=== PATIENT | female | born 1950 | race Caucasian/White ===

== ENCOUNTER → 2016-11-14 14:11 | Emergency (ER) | payer SELFPAY ==
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
[2016-11-14 16:35] VITALS: BP 165/62
== END | disposition home or self-care (01) ==
LOC: ED 14:11
DX: R51 Headache (principal); V89.2XXA Person injured in unspecified motor-vehicle accident, traffic, initial encounter; Y92.9 Unspecified place or not applicable; I25.10 Atherosclerotic heart disease of native coronary artery without angina pectoris; I10 Essential (primary) hypertension; K21.9 Gastro-esophageal reflux disease without esophagitis; Z87.891 Personal history of nicotine dependence; E11.9 Type 2 diabetes mellitus without complications; Z79.4 Long term (current) use of insulin; Z79.84 Long term (current) use of oral hypoglycemic drugs
CPT/HCPCS: 70450; 99282

== ENCOUNTER 2016-12-23 14:00 | Emergency (ER) | payer BC, MEDICARE ==
[2016-12-23 14:09] VITALS: BP 166/82
--- NOTE | 2016-12-23 14:22 | UC ---
Lower Extremity/Ankle HPI - HPI Summary HPI Summary: 66 YEAR OLD FEMALE WITH INSECT BITE BEHIND LEFT KNEE. - History of Current Complaint Chief Complaint: UCSkin Stated Complaint: RT LEG COMPLAINT-RED/SWOLLEN Time Seen by Provider: 12/23/16 14:15 - Allergies/Home Medications Allergies/Adverse Reactions: Allergies Allergy/AdvReac Type Severity Reaction Status Date / Time Morphine Allergy Nausea And Verified 12/23/16 14:10 Vomiting PMH/Surg Hx/FS Hx/Imm Hx Other History Of: Negative For: Anticoagulant Therapy - Surgical History Surgical History: Yes Surgery Procedure, Year, and Place: hysterectomy. . gallbladder. bunionectomy. Right Ankle Surgery - Family History Known Family History: Positive: Diabetes - mom - Social History Alcohol Use: None Alcohol Amount: ONCE A MONTH Substance Use Type: None Smoking Status (MU): Former Smoker Amount Used/How Often: 1 PPD X 30 YRS. Have You Smoked in the Last Year: No When Did the Patient Quit Smoking/Using Tobacco: 2000 Household Exposure Type: Cigarettes Review of Systems Constitutional: Negative Skin: Rash, Other - POSTERIOR LEFT KNEE INSECT BITE Eyes: Negative ENT: Negative Respiratory: Negative Cardiovascular: Negative Gastrointestinal: Negative Genitourinary: Negative Motor: Negative Neurovascular: Negative Musculoskeletal: Negative Neurological: Negative Psychological: Negative All Other Systems Reviewed And Are Negative: Yes Physical Exam Triage Information Reviewed: Yes Vital Signs: Initial Vital Signs Temp 37.4 C 12/23/16 14:02 Pulse 99 12/23/16 14:02 Resp 16 12/23/16 14:02 BP 166/82 12/23/16 14:02 Pulse Ox 97 12/23/16 14:02 Eye Exam: Normal ENT Exam: Normal Dental Exam: Normal Neck exam: Normal Neck: Positive: 1 Respiratory Exam: Normal Cardiovascular Exam: Normal Abdominal Exam: Normal Musculoskeletal Exam: Normal Neurological Exam: Normal Psychological Exam: Normal Skin Exam: Normal Skin: Positive: Other - LEFT POSTERIOR KNEE INSECT BITE Lower Extremity Course/Dx - Differential Dx/Diagnosis Provider Diagnoses: LEFT POSTERIOR KNEE INSECT BITE Discharge - Discharge Plan Condition: Stable Disposition: HOME Prescriptions: Methylprednisolone [Medrol Dosepak 4 MG*] 4 mg PO .SEE DOLLY INSTRUCTION #21 tab Mupirocin 2% OINT* [Bactroban 2 % Oint*] 1 applic TOPICAL BID #1 tube Sulfamethox/Trimethoprim DS* [Bactrim DS 800/160 TAB*] 1 tab PO BID #30 tab Patient Education Materials: Insect Bite or Sting (ED) Referrals: Ambrosio Hill MD [Primary Care Provider] - If Needed
== END 2016-12-23 14:30 | disposition home or self-care (01) ==
LOC: UCEAST 14:00
DX: S80.262A Insect bite (nonvenomous), left knee, initial encounter (principal); W57.XXXA Bitten or stung by nonvenomous insect and other nonvenomous arthropods, initial encounter; Y93.9 Activity, unspecified; Y92.9 Unspecified place or not applicable; Y99.9 Unspecified external cause status; Z87.891 Personal history of nicotine dependence
CPT/HCPCS: 99212; G0463

== ENCOUNTER 2017-06-30 14:21 | Emergency (ER) | payer MEDICARE, OTHER ==
[2017-06-30 14:35] VITALS: BP 154/56
[2017-06-30] MEDS ORDERED: HYDROcodone/ACETAMIN 5-325 MG* 1 TAB PO ONE (15:06)
--- NOTE | 2017-06-30 15:32 | RAD ---
INDICATION: Right shoulder pain. TECHNIQUE: 2 views of the right shoulder were obtained. FINDINGS: The bones are in normal alignment. No fracture is seen. There is calcification adjacent to the superior lateral aspect of the humeral head. IMPRESSION: FINDINGS SUGGESTIVE OF CALCIFIC TENDINITIS OR BURSITIS.
--- NOTE | 2017-06-30 15:50 | UC ---
Shoulder Pain HPI - HPI Summary HPI Summary: Sudden onset of right shoulder pain (pain near humeral head) last night limited ROM due to pain--no new injury is currently retired from [employer] work - History of Current Complaint Chief Complaint: UCUpperExtremity Stated Complaint: SHOULDER PAIN Time Seen by Provider: 06/30/17 15:02 Hx Obtained From: Patient ?: No Onset/Duration: Sudden Onset, Lasting Days - 1, Still Present Timing: Constant Severity Initially: Moderate Severity Currently: Moderate Location Of Pain: Is Discrete @ Character: Aching, Throbbing, Stiffness Aggravating Factor(s): Movement Alleviating Factor(s): Rest Associated Signs And Symptoms: Positive: Negative Related History: Dominant Hand Right - Allergies/Home Medications Allergies/Adverse Reactions: Allergies Allergy/AdvReac Type Severity Reaction Status Date / Time Morphine Allergy Nausea And Verified 12/23/16 14:10 Vomiting Home Medications: Home Medications Hydrocodone-Acetaminophen [Hydrocodone Bitartrate/AC 10-325 mg] 1 tab PO Q6HR PRN 06/30/17 [History Confirmed 06/30/17] PMH/Surg Hx/FS Hx/Imm Hx Previously Healthy: No Endocrine History: Diabetes, Dyslipidemia Cardiovascular History: Hypertension GI/ History: Gastroesophageal Reflux Other History Of: Negative For: Anticoagulant Therapy - Surgical History Surgical History: Yes Surgery Procedure, Year, and Place: hysterectomy. . gallbladder. bunionectomy. Right Ankle Surgery - Family History Known Family History: Positive: Diabetes - mom - Social History Occupation: Retired Lives: With Family Alcohol Use: None Alcohol Amount: ONCE A MONTH Substance Use Type: None Smoking Status (MU): Former Smoker Amount Used/How Often: 1 PPD X 30 YRS. Have You Smoked in the Last Year: No When Did the Patient Quit Smoking/Using Tobacco: 2000 Household Exposure Type: Cigarettes - Immunization History Most Recent Influenza Vaccination: fall 2016 Review of Systems Constitutional: Negative Skin: Negative Eyes: Negative ENT: Negative Respiratory: Negative Cardiovascular: Negative Gastrointestinal: Negative Genitourinary: Negative Motor: Negative Neurovascular: Negative Musculoskeletal: Arthralgia - right shoulder Neurological: Negative Psychological: Negative Is Patient Immunocompromised?: No All Other Systems Reviewed And Are Negative: Yes Physical Exam Triage Information Reviewed: Yes Appearance: Well-Appearing, Pain Distress, Thin Vital Signs: Initial Vital Signs Temp 97.5 F 06/30/17 14:30 Pulse 82 06/30/17 14:30 Resp 16 06/30/17 14:30 BP 154/56 06/30/17 14:30 Pulse Ox 99 06/30/17 14:30 Vital Signs Reviewed: Yes Eye Exam: Normal Eyes: Positive: Conjunctiva Clear ENT Exam: Normal ENT: Positive: Normal ENT inspection, Hearing grossly normal, Pharynx normal. Negative: Nasal congestion, Trismus, Muffled voice, Hoarse voice, Dental tenderness, Sinus tenderness Dental Exam: Normal Neck exam: Normal Neck: Positive: Supple, Nontender, No Lymphadenopathy Respiratory Exam: Normal Respiratory: Positive: Chest non-tender, No respiratory distress, No accessory muscle use Cardiovascular Exam: Normal Cardiovascular: Positive: RRR, Pulses Normal, Brisk Capillary Refill Musculoskeletal Exam: Normal Musculoskeletal: Positive: No Edema, Strength Limited @ - right shoulder, ROM Limited @ - right shoulder Neurological Exam: Normal Neurological: Positive: Alert, Muscle Tone Normal Psychological Exam: Normal Skin Exam: Normal Diagnostics - Radiology No standard instances Xray Interpretation: Positive (See Comments) - Calcific tendonitis Radiology Interpretation Completed By: ED Physician, Radiologist Shoulder Course/Dx - Course Assessment/Plan: Mobic, Hydrocodone, sling for comfort, follow with ortho for definative care - Differential Dx/Diagnosis Provider Diagnoses: right calcific tendonitis Discharge - Discharge Plan Condition: Stable Disposition: HOME Prescriptions: Hydrocodone-Acetaminophen [Hydrocodone/Acetaminophen 5-325 mg] 1 - 2 tab PO QID PRN #20 tab MDD 6 PRN Reason: pain Meloxicam(NF) [Mobic(NF)] 7.5 mg PO DAILY PRN #30 tab PRN Reason: Pain Patient Education Materials: Meloxicam (By mouth), Calcific Tendinitis (ED), Hypertension (ED) Referrals: Ambrosio Hill MD [Primary Care Provider] - 2 Weeks David Mccartney MD [Medical Doctor] - 1 Week
== END 2017-06-30 16:00 | disposition home or self-care (01) ==
LOC: UCEAST 14:21
DX: M75.31 Calcific tendinitis of right shoulder (principal); E11.9 Type 2 diabetes mellitus without complications; E78.5 Hyperlipidemia, unspecified; I10 Essential (primary) hypertension; K21.9 Gastro-esophageal reflux disease without esophagitis; Z90.710 Acquired absence of both cervix and uterus; Z90.49 Acquired absence of other specified parts of digestive tract; Z88.5 Allergy status to narcotic agent; Z87.891 Personal history of nicotine dependence
CPT/HCPCS: 99213; G0463

== ENCOUNTER 2017-11-13 09:13 | Day surgery (SDC) | payer MEDICARE ==
--- NOTE | 2017-10-25 21:16 | HP ---
PREOPERATIVE HISTORY AND PHYSICAL: DATE OF ADMISSION/SURGERY: 11/13/17 DATE OF OFFICE VISIT: 10/25/17 ATTENDING PHYSICIAN: Dr. David Mccartney.* (DICTATED BY BAILEY YUSUF) PROCEDURE: Right fibula tibia removal of hardware and left knee injection. CHIEF COMPLAINT: Right ankle pain. HISTORY OF PRESENT ILLNESS: Jolie is a 67-year-old female, who presents to the clinic status post ORIF of the right ankle performed on 05/21/16. She has pain due to the hardware in her ankle. She has failed conservative measures and therefore agreed to undergo a right fibula tibia removal of hardware and the left knee injection with Dr. Mccartney on 11/13/17. She has left knee osteoarthritis and requires a steroid injection for pain control. PAST MEDICAL HISTORY: Diabetes, high cholesterol, hypertension, GERD, arthritis. PAST SURGICAL HISTORY: Cholecystectomy, hysterectomy, , right bunion surgery, and right ankle ORIF. The patient denies prior complications with anesthesia. MEDICATIONS: 1. Hydrochlorothiazide 25 mg 1 by mouth daily. 2. Simvastatin 40 mg 1 by mouth daily. 3. Rabeprazole sodium 20 mg 1 by mouth daily. 4. Metformin 1000 mg 1 by mouth daily. 5. Glipizide 5 mg 1 by mouth daily. 6. Ondansetron 4 mg 1 by mouth daily. 7. Trazodone 50 mg 1 by mouth daily as needed. 8. Tizanidine 4 mg 1 by mouth daily. 9. Lisinopril 20 mg daily. 10. Fish oil daily. 11. Calcium daily. ALLERGIES: No known drug allergies. FAMILY HISTORY: Positive for diabetes in her sister and her mother. Hypertension in her mother. SOCIAL HISTORY: She lives with her roommate. She works in cleaning. She is a former smoker, quit in 1999. She denies alcohol use. She is right hand dominant. She denies illegal drug use. REVIEW OF SYSTEMS: A 14-point review of systems was reviewed with the patient. Positive for current complaint, otherwise negative. Denies fever, chills, chest pain, shortness of breath, history of bleeding disorder, history of DVT or PE, history of hep C or HIV. PHYSICAL EXAMINATION GENERAL: A 67-year-old well-developed, well-nourished female in no acute distress. Alert and oriented x3. Appropriate mood and affect. Appropriate balance and coordination of the lower extremities VITAL SIGNS: Height 59, weight 127 pounds, blood pressure 114/60, respiratory rate 20, temperature 98.3, BMI 25.6. HEENT: Normocephalic, atraumatic. PERRLA. Throat clear. NECK: Supple. PULMONARY: Lungs clear to auscultation bilaterally. No wheezing, rhonchi, or rales. CARDIO: Regular rate and rhythm. S1 and S2. No murmurs, gallops, or rubs. No edema. ABDOMEN: Positive bowel sounds, soft, nontender. NEURO: Alert and oriented x3. Cranial nerves grossly intact. Sensation is intact to light touch. MUSCULOSKELETAL: Right upper extremity: Skin is intact, well-healed surgical incision. No warmth or erythema. The plate is very prominent and tenderness to palpation over the hardware. Calf soft, nontender. +5/5 strength dorsiflexion, plantar flexion. +2 PT pulse. Sensation is intact to light touch distally. DIAGNOSTIC STUDIES: Multiple view x-rays of the left knee reveal osteoarthritis and x-rays of the right ankle revealed well-healed ORIF of the right ankle. IMPRESSION: Painful hardware, right ankle and left knee osteoarthritis. PLAN: The patient is scheduled to undergo right fibula tibia removal of hardware and a left knee injection with Dr. Mccartney on 11/13/17. She will follow up in 10 to 14 days postop for followup and suture removal. Oxycodone sent to the patient's pharmacy for postop pain control. BAILEY YUSUF [id number]/[facility] #: [id number] MTDPhuong
[~2017-11-13 09:13] MED LIST: Buffered Lidocaine 0.9% SYRIN* 5 ML/SYR SYRINGE INTRADERM ONE; Dexamethasone IV* 4 MG/ML 1 ML (4 MG) IV SLOW PU ONE; fentaNYL* 50 MCG/ML 2 ML VIAL (100 MCG VIAL) ONE
[2017-11-13] MEDS ORDERED: Dexamethasone IV* 4 MG/ML 1 ML (4 MG) ONE (09:20)
[2017-11-13] MEDS ORDERED: Buffered Lidocaine 0.9% SYRIN* 5 ML/SYR SYRINGE ONE (09:20)
[2017-11-13] MEDS ORDERED: ceFAZolin 2 GM PREMIX (*) 2 GM/50 ML BAG IVPB ONE (09:20)
[2017-11-13] MEDS ORDERED: methylPREDNISolone ACETATE 80* 80 MG/ML 1 ML VIAL ONE (09:29)
[2017-11-13] MEDS ORDERED: Bupivacaine 0.25% SDV* 30 ML ONE (09:29)
[2017-11-13] MEDS ORDERED: Ondansetron ODT TAB* 4 MG ONE (09:47)
[2017-11-13] MEDS ORDERED: Midazolam* 1 MG/ML 2 ML VIAL (2 MG) ONE (09:50)
[2017-11-13] MEDS ORDERED: Bupivacaine 0.5% PF 10 ML VIAL INJ ONE (09:50)
[2017-11-13] MEDS ORDERED: Propofol* 10 MG/ML 20 ML BTL IV PUSH ONE (09:50)
[2017-11-13] MEDS ORDERED: Lidocaine 2% PF * 5 ML VIAL ONE (09:54)
[2017-11-13] MEDS ORDERED: Phenylephrine INJ* 10 MG/ML 1 ML VIAL (10 MG) ONE (09:59)
[2017-11-13] MEDS ORDERED: Chloroprocaine 2%* 20 ML VIAL ONE (10:09)
[2017-11-13] MEDS ORDERED: DiMENhydriNATE IV* 50 MG/ML VIAL IV PUSH PRN (10:21)
[2017-11-13] MEDS ORDERED: fentaNYL* 50 MCG/ML 2 ML VIAL (100 MCG VIAL) IV PRN (10:21)
[2017-11-13] MEDS ORDERED: Naloxone* 0.4 MG/ML 1 ML VIAL IV PRN (10:21)
[2017-11-13] MEDS ORDERED: oxyCODONE/Acetamin 5/325 MG* TAB PO PRN (10:21)
[2017-11-13] MEDS ORDERED: Ondansetron ODT TAB* 4 MG PO ONE (10:23)
[2017-11-13 12:29] VITALS: BP 139/83
[2017-11-13] MEDS ORDERED: oxyCODONE/Acetamin 5/325 MG* TAB ONE (12:39)
--- NOTE | 2017-11-14 07:38 | RAD ---
INDICATION: M 25.562, hardware removal COMPARISONS: October 01, 2017 TECHNIQUE: Fluoroscopy was provided for a surgical procedure. Total fluoroscopy time is: 3.5 seconds FINDINGS: A spot image demonstrates interval removal of fixation hardware of the distal fibula and distal tibia. IMPRESSION: FLUOROSCOPY WAS PROVIDED FOR A SURGICAL PROCEDURE CPT II Codes: G9500
--- NOTE | 2017-11-14 12:38 | OP ---
DATE OF OPERATION: 11/13/17 [facility] DATE OF : 46 SURGEON: David Mccartney MD. PROPERTY VALUER: BAILEY Robles. An sugar laboratory assistant was needed for the entirety of the case to help with positioning, retraction and was utilized throughout all portions of the case. ANESTHESIOLOGIST: Dr. Gonzalez. ANESTHESIA: Spinal with MAC. PRE-OP DIAGNOSIS: Right ankle retained symptomatic hardware and left knee arthritis. POST-OP DIAGNOSIS: Right ankle retained symptomatic hardware and left knee arthritis. OPERATIVE PROCEDURE: Right ankle removal of hardware and left knee injection with 80 mg of Depo-Medrol. COMPLICATIONS: None. ESTIMATED BLOOD LOSS: Minimal. TOURNIQUET TIME: 44 minutes at 250 mmHg. INDICATIONS: Jolie Gordon is a 67-year-old female who underwent previous open reduction and internal fixation in April 2016. She is very thin. She had symptomatic hardware. After extensive discussion of risks and benefits of surgical treatment, risk included but not limited to bleeding, infection, damage to nerves, vessels, surrounding structures, wound nonhealing, persistent pain, need for further surgery, scarring, stiffness, refracture, risks of anesthesia, risk of DVT. She elected to proceed. DESCRIPTION OF PROCEDURE: The patient was greeted in the preoperative area by the attending surgeon. Correct extremity was marked and the consent was confirmed. The patient was brought back to the operating suite where she was placed in supine position on the operating table. She was sat up and then underwent spinal anesthesia after which the left leg was then prepped and draped in usual sterile fashion. Left knee was intra-articularly injected with 80 mg of Depo and 6 cc of Marcaine with a 22-gauge needle. She tolerated the injection well. After surgical pause, the injection was done and Band-Aid was applied. An unsterile tourniquet was placed high on the right thigh. The right leg was prepped and draped in usual sterile fashion using chlorhexidine soap scrub and alcohol wipe, and a final prep with ChloraPrep. After appropriate surgical pause indicating side, site, procedure, administration of antibiotics, the limb was exsanguinated and the tourniquet inflated to 250 mmHg. A 15 blade was used to open the previous incisions medially and laterally. Structures were carefully dissected about the lateral aspect and the plate was readily identified. The screws were all removed in their entirety, the plate as well was loosened and removed. The anterior to posterior screw was also removed in its entirety. After this was done, the screw holes were then gently lavaged and the wounds were copiously irrigated. The medial wound was dressed and one 3-0 cannulated screw was removed in its entirety. The wounds were copiously irrigated with sterile saline. Final images were obtained to confirm that there was no hardware that remained. The wounds were closed in layers of 2-0 Vicryl and 3-0 nylon and injected with 0.25 % Marcaine plain for postop pain control. A well- padded posterior splint was applied. She was awoken from anesthesia transferred to PACU in stable condition. POSTOPERATIVE PLAN: She will be nonweightbearing. She will be discharged on pain medications and antibiotics. I will see the patient back in approximately 10 to 14 days. She will be nonweightbearing, transition to a boot this week. DVT prophylaxis was considered, but deferred due to no previous personal or family history. [id number]/[facility] #: [id number] SAMIR
== END 2017-11-13 12:41 | disposition home or self-care (01) ==
LOC: OR 09:13
PROVIDERS: ATTEND Orthopaedic Surgery
DX: T84.84XA Pain due to internal orthopedic prosthetic devices, implants and grafts, initial encounter (principal); Y83.1 Surgical operation with implant of artificial internal device as the cause of abnormal reaction of the patient, or of later complication, without mention of misadventure at the time of the procedure; M17.12 Unilateral primary osteoarthritis, left knee; E11.9 Type 2 diabetes mellitus without complications; Z79.84 Long term (current) use of oral hypoglycemic drugs; E78.00 Pure hypercholesterolemia, unspecified; I10 Essential (primary) hypertension; K21.9 Gastro-esophageal reflux disease without esophagitis; M19.90 Unspecified osteoarthritis, unspecified site
CPT/HCPCS: 76000; 88300; A9270-GY; J0690; J1040; J1100; J2250; J2400; J2704; J3010